=== PATIENT | male | born 1990 ===

== ENCOUNTER 2019-05-31 18:19 | Emergency (ER) | payer OTHER ==
[~2019-05-31] VITALS: Ht 175.3 cm; Wt 80.0 kg
[2019-05-31 19:58] VITALS: BP 128/87
--- NOTE | 2019-06-06 08:47 | NUR ---
THROUGHPUT RN: NO PHONE NUMBER LISTED. SENDING CULTURE LETTER TO PT FOR LABS ON 05/31/2019.
== END 2019-05-31 20:28 | disposition home or self-care (01) ==
LOC: ED 18:49
DX: B34.9 Viral infection, unspecified (principal); Z20.828 Contact with and (suspected) exposure to other viral communicable diseases; R06.00 Dyspnea, unspecified; R00.0 Tachycardia, unspecified
CPT/HCPCS: 71045; 93005; 99285